=== PATIENT | female | born 1985 | race Caucasian/White ===

== ENCOUNTER 2020-10-26 14:42 | Emergency (ER) | payer BC ==
--- NOTE | 2020-10-26 14:45 | ERPHSYRPT ---
- History of Present Illness Time Seen by Provider: 10/26/20 14:45 Source: patient Exam Limitations: no limitations Physician History: This is a 35-year-old white female who has a history of diabetes and presents with sudden onset of generalized numbness. Patient states that she cannot feel anything because of generalized numbness. Patient did not hit her head. She had a similar episode approximately 8 years ago and they thought maybe it was a presurgery or sensation. However, patient did not seize. She is not on any antiseizure medication. Approximate 1 week ago, patient was started on a new oral contraceptive agent after removal of her IUD. That is the only change in her medications. Patient is being worked up by gynecology for possible polycystic ovary syndrome versus endometriosis. Patient is not under any more stress than typical. She denies chest pain. She denies shortness of breath. She has no abdominal pain at this time. She has not been vomiting blood, urinating blood or passing bloody stools. Patient denies fevers and denies chills. Timing/Duration: today Severity: mild Associated Symptoms: denies symptoms Allergies/Adverse Reactions: oxycodone Allergy (Verified 10/26/20 15:04) Vomiting Home Medications: Ergocalciferol (Vitamin D2) [Vitamin D2] 1 cap PO DAILY 10/26/20 [History] Metformin HCl 500 mg [Glucophage 500 MG] 500 mg PO TID 10/26/20 [History] l-Norgest/E.estradiol-E.estrad [Simpesse 0.15-0.03-0.01 mg Tab] 1 tab PO DAILY 10/26/20 [History] Travel Risk - International Travel Have you traveled outside of the country in past 3 weeks: No - Coronavirus Screening Are you exhibiting any of the following symptoms?: No Close contact with a COVID-19 positive Pt in past 14-21 Days: No - Review of Systems Constitutional: No Symptoms Eyes: No Symptoms Ears, Nose, & Throat: No Symptoms Respiratory: No Symptoms Cardiac: No Symptoms Abdominal/Gastrointestinal: No Symptoms Genitourinary Symptoms: No Symptoms Musculoskeletal: No Symptoms Skin: No Symptoms Neurological: Parasthesia (Generalized numbness) Psychological: No Symptoms Endocrine: No Symptoms Hematologic/Lymphatic: No Symptoms Immunological/Allergic: No Symptoms All Other Systems: Reviewed and Negative - Past Medical History Pertinent Past Medical History: Yes Neurological History: Migraines ENT History: No Pertinent History Cardiac History: No Pertinent History Respiratory History: No Pertinent History Endocrine Medical History: No Pertinent History Musculoskeletal History: No Pertinent History GI Medical History: No Pertinent History History: Other Psycho-Social History: No Pertinent History Female Reproductive Disorders: No Pertinent History - Past Surgical History Past Surgical History: Yes Neuro Surgical History: No Pertinent History Cardiac: No Pertinent History Respiratory: No Pertinent History Gastrointestinal: No Pertinent History Musculoskeletal: Orthopedic Surgery Female Surgical History: Section Other Surgical History: right ankle scope - Social History Smoking Status: Never smoker Exposure to second hand smoke: No Drug Use: none - Nursing Vital Signs Nursing Vital Signs: Initial Vital Signs Temperature 97.9 F 10/26/20 14:47 Pulse Rate 88 10/26/20 14:47 Respiratory Rate 18 10/26/20 14:47 Blood Pressure 167/102 10/26/20 14:47 O2 Sat by Pulse Oximetry 99 10/26/20 14:47 Pain Scale Pain Intensity 0 - Physical Exam General Appearance: no apparent distress, alert, anxiety Eye Exam: PERRL/EOMI, eyes nml inspection Ears, Nose, Throat Exam: normal ENT inspection, moist mucous membranes Neck Exam: normal inspection, non-tender, supple, full range of motion Respiratory Exam: normal breath sounds, lungs clear, airway intact, No chest tenderness, No respiratory distress Cardiovascular Exam: regular rate/rhythm, normal heart sounds, normal peripheral pulses Gastrointestinal/Abdomen Exam: soft, normal bowel sounds, No tenderness Pelvic Exam: not done Rectal Exam: not done Back Exam: normal inspection, normal range of motion, No CVA tenderness, No vertebral tenderness Extremity Exam: normal inspection, normal range of motion, pelvis stable Neurologic Exam: alert, oriented x 3, cooperative, instrument tester II-XII nml as tested, normal mood/affect, nml cerebellar function, nml station & gait, sensation nml Skin Exam: normal color, warm, dry Lymphatic Exam: No adenopathy SpO2 Interpretation: normal O2 Delivery: Room Air - Course Nursing assessment & vital signs reviewed: Yes Ordered Tests: Active Orders 24 hr Category Date Time Status Clean Catch Urine Specimen STAT Care 10/26/20 14:55 Active IV Insertion STAT Care 10/26/20 14:55 Active HEAD WITHOUT CONTRAST [CT] Stat Exams 10/26/20 15:47 Completed CBC W DIFF Stat Lab 10/26/20 15:17 Completed CMP Stat Lab 10/26/20 15:17 Completed CULTURE,URINE Stat Lab 10/26/20 15:18 Received HCG,QUALITATIVE URINE Stat Lab 10/26/20 15:18 Completed Lactic Acid Stat Lab 10/26/20 14:55 Completed MAGNESIUM Stat Lab 10/26/20 15:17 Completed UA W/RFX UR CULTURE Stat Lab 10/26/20 15:18 Completed Urine Triage Profile Stat Lab 10/26/20 15:18 Completed Lab/Rad Data: Laboratory Result Diagrams 10/26/20 15:17 10/26/20 15:17 Laboratory Results 10/26/20 10/26/20 10/26/20 Range/Units 15:18 15:18 15:18 WBC (4.0-10.5) K/mm3 RBC (4.1-5.4) M/mm3 Hgb (12.0-16.0) gm/dl Hct (35-47) % MCV (78-100) fl MCH (26-32) pg MCHC (32-36) g/dl RDW (11.5-14.0) % Plt Count (150-450) K/mm3 MPV (7.5-11.0) fl Gran % (36.0-66.0) % Eos # (Auto) (0-0.5) Absolute Lymphs (auto) (1.0-4.6) Absolute Monos (auto) (0.0-1.3) Lymphocytes % (24.0-44.0) % Monocytes % (0.0-12.0) % Eosinophils % (0.00-5.0) % Basophils % (0.0-0.4) % Absolute Granulocytes (1.4-6.9) Basophils # (0-0.4) Sodium (137-145) mmol/L Potassium (3.5-5.1) mmol/L Chloride (98-107) mmol/L Carbon Dioxide (22-30) mmol/L Anion Gap (5-15) MEQ/L BUN (7-17) mg/dL Creatinine (0.52-1.04) mg/dL Estimated GFR ML/MIN Glucose (74-106) mg/dL Lactic Acid (0.4-2.0) Calcium (8.4-10.2) mg/dL Magnesium (1.6-2.3) mg/dL Total Bilirubin (0.2-1.3) mg/dL AST (14-36) U/L ALT (0-35) U/L Alkaline Phosphatase (38-126) U/L Serum Total Protein (6.3-8.2) g/dL Albumin (3.5-5.0) g/dL Urine Color YELLOW (YELLOW) Urine Appearance SLIGHTLY CLOUDY (CLEAR) Urine pH 7.0 (5-6) Ur Specific [place] 1.024 (1.005-1.025) Urine Protein NEGATIVE (Negative) Urine Ketones NEGATIVE (NEGATIVE) Urine Blood MODERATE (0-5) Joe/ul Urine Nitrite POSITIVE (NEGATIVE) Urine Bilirubin NEGATIVE (NEGATIVE) Urine Urobilinogen NEGATIVE (0-1) mg/dL Ur Leukocyte Esterase SMALL (NEGATIVE) Urine WBC (Auto) 16-25 (0-5) /HPF Urine RBC (Auto) 6-10 (0-2) /HPF U Epithel Cells (Auto) RARE (FEW) /HPF Urine Bacteria (Auto) MODERATE (NEGATIVE) /HPF Calcium Oxalate Crystal 0-2 (NEGATIVE) /HPF Urine Mucus (Auto) MODERATE (NEGATIVE) /HPF Urine Yeast (Budding) Rare (NEGATIVE) /HPF Urine Culture Reflexed YES (NO) Urine Glucose NEGATIVE (NEGATIVE) mg/dL Urine HCG, Qual NEGATIVE (Negative) Urine Opiates Level NEGATIVE (NEGATIVE) Ur Methadone NEGATIVE (NEGATIVE) Urine Barbiturates NEGATIVE (NEGATIVE) Ur Phencyclidine (PCP) NEGATIVE (NEGATIVE) Urine Amphetamine NEGATIVE (NEGATIVE) U Benzodiazepine Level NEGATIVE (NEGATIVE) Urine Cocaine NEGATIVE (NEGATIVE) Urine Marijuana (THC) NEGATIVE (NEGATIVE) 10/26/20 10/26/20 10/26/20 Range/Units 15:17 15:17 14:55 WBC 8.4 (4.0-10.5) K/mm3 RBC 4.64 (4.1-5.4) M/mm3 Hgb 13.3 (12.0-16.0) gm/dl Hct 42.0 (35-47) % MCV 90.5 (78-100) fl MCH 28.7 (26-32) pg MCHC 31.7 L (32-36) g/dl RDW 14.0 (11.5-14.0) % Plt Count 274 (150-450) K/mm3 MPV 11.2 H (7.5-11.0) fl Gran % 64.7 (36.0-66.0) % Eos # (Auto) 0.17 (0-0.5) Absolute Lymphs (auto) 2.16 (1.0-4.6) Absolute Monos (auto) 0.59 (0.0-1.3) Lymphocytes % 25.7 (24.0-44.0) % Monocytes % 7.0 (0.0-12.0) % Eosinophils % 2.0 (0.00-5.0) % Basophils % 0.6 (0.0-0.4) % Absolute Granulocytes 5.43 (1.4-6.9) Basophils # 0.05 (0-0.4) Sodium 140 (137-145) mmol/L Potassium 3.4 L (3.5-5.1) mmol/L Chloride 104 (98-107) mmol/L Carbon Dioxide 25 (22-30) mmol/L Anion Gap 14.0 (5-15) MEQ/L BUN 11 (7-17) mg/dL Creatinine 0.73 (0.52-1.04) mg/dL Estimated GFR > 60.0 ML/MIN Glucose 101 (74-106) mg/dL Lactic Acid 1.1 (0.4-2.0) Calcium 9.6 (8.4-10.2) mg/dL Magnesium 2.1 (1.6-2.3) mg/dL Total Bilirubin 0.50 (0.2-1.3) mg/dL AST 25 (14-36) U/L ALT 19 (0-35) U/L Alkaline Phosphatase 46 (38-126) U/L Serum Total Protein 7.8 (6.3-8.2) g/dL Albumin 4.8 (3.5-5.0) g/dL Urine Color (YELLOW) Urine Appearance (CLEAR) Urine pH (5-6) Ur Specific [place] (1.005-1.025) Urine Protein (Negative) Urine Ketones (NEGATIVE) Urine Blood (0-5) Joe/ul Urine Nitrite (NEGATIVE) Urine Bilirubin (NEGATIVE) Urine Urobilinogen (0-1) mg/dL Ur Leukocyte Esterase (NEGATIVE) Urine WBC (Auto) (0-5) /HPF Urine RBC (Auto) (0-2) /HPF U Epithel Cells (Auto) (FEW) /HPF Urine Bacteria (Auto) (NEGATIVE) /HPF Calcium Oxalate Crystal (NEGATIVE) /HPF Urine Mucus (Auto) (NEGATIVE) /HPF Urine Yeast (Budding) (NEGATIVE) /HPF Urine Culture Reflexed (NO) Urine Glucose (NEGATIVE) mg/dL Urine HCG, Qual (Negative) Urine Opiates Level (NEGATIVE) Ur Methadone (NEGATIVE) Urine Barbiturates (NEGATIVE) Ur Phencyclidine (PCP) (NEGATIVE) Urine Amphetamine (NEGATIVE) U Benzodiazepine Level (NEGATIVE) Urine Cocaine (NEGATIVE) Urine Marijuana (THC) (NEGATIVE) - Progress Progress: improved, re-examined Progress Note: 10/26/20 16:29 CAT scan of the head without contrast shows no acute intracranial abnormality. Counseled pt/family regarding: lab results, diagnosis, need for follow-up, rad results - Departure Departure Disposition: Home Clinical Impression: Numbness, UTI (urinary tract infection) Condition: Stable Critical Care Time: No Referrals: HANNAH SMITH [Primary Care Provider] - Additional Instructions: Drink plenty of fluids. Take your medication as prescribed. Follow-up with your primary care physician for further management. Prescriptions: Ciprofloxacin [Cipro 500 MG] 500 mg PO BID #14 tablet
[2020-10-26 15:22] LABS: Absolute Neutrophil Ct (ANC) 5.43 (1.4-6.9); BASOPHIL % 0.6 % (0.0-0.4); Basophil (Absolute #) 0.05 (0-0.4); Eosinophil (Absolute #) 0.17 (0-0.5); Hemoglobin 13.3 gm/dl (12.0-16.0); Lymphocyte (Absolute #) 2.16 (1.0-4.6); Lymphocytes % 25.7 % (24.0-44.0); Mean Cell Volume 90.5 fl (78-100); Mean Corpuscular Hemoglobin 28.7 pg (26-32); Mean Corpuscular Hgb Concent. 31.7 g/dl (32-36); Mean Platelet Volume 11.2 fl (7.5-11.0); Monocyte (Absolute #) 0.59 (0.0-1.3); Neutrophil % 64.7 % (36.0-66.0); Platelet Count 274 K/mm3 (150-450); Red Blood Count 4.64 M/mm3 (4.1-5.4); White Blood Count 8.4 K/mm3 (4.0-10.5)
[2020-10-26 15:30] LABS: ALBUMIN 4.8 g/dL (3.5-5.0); ALKALINE PHOSPHATASE 46 U/L (38-126); BLOOD UREA NITROGEN 11 mg/dL (7-17); CHLORIDE 104 mmol/L (98-107); Calcium 9.6 mg/dL (8.4-10.2); Carbon Dioxide 25 mmol/L (22-30); Creatinine 1 0.73 mg/dL (0.52-1.04); EST GLOMERULAR FILTRATION RATE > 60.0 ML/MIN; Glucose 101 mg/dL (74-106); MAGNESIUM 2.1 mg/dL (1.6-2.3); Potassium 3.4 mmol/L (3.5-5.1); SGOT/AST 25 U/L (14-36); SGPT/ALT 19 U/L (0-35); SODIUM 140 mmol/L (137-145); Total Protein 7.8 g/dL (6.3-8.2)
[2020-10-26 15:53] LABS: Amphetamine,Urine NEGATIVE (NEGATIVE); Barbiturate,Urine NEGATIVE (NEGATIVE); Benzodiazepine,Urine NEGATIVE (NEGATIVE); Cocaine,Urine NEGATIVE (NEGATIVE); Methadone,Urine NEGATIVE (NEGATIVE); Opiate,Urine NEGATIVE (NEGATIVE); PCP,Urine NEGATIVE (NEGATIVE); THC,Urine NEGATIVE (NEGATIVE)
[2020-10-26 16:05] LABS: Appearance SLIGHTLY CLOUDY (CLEAR); Bacteria MODERATE /HPF (NEGATIVE); Bilirubin NEGATIVE (NEGATIVE); Blood MODERATE Ery/ul (0-5); Epithelial Cells RARE /HPF (FEW); Glucose NEGATIVE (NEGATIVE); Ketones NEGATIVE (NEGATIVE); Leukocyte Esterase SMALL (NEGATIVE); Mucus MODERATE /HPF (NEGATIVE); Nitrite POSITIVE (NEGATIVE); Protein,Urine Dip NEGATIVE (Negative); Specific Gravity 1.024 (1.005-1.025); Urobilinogen NEGATIVE mg/dL (0-1)
[2020-10-26 16:08] VITALS: BP 151/86; PULSE 82; O2SAT 97
[2020-10-26 16:17] LABS: Budding Yeast Rare /HPF (NEGATIVE)
[2020-10-26 16:18] LABS: Calcium Oxalate Crystals 0-2 /HPF (NEGATIVE)
--- NOTE | 2020-10-26 16:27 | XRAY ---
Indication: Diffuse numbness. Multiple contiguous axial images obtained through the head without contrast. Comparison: None Normal appearing brain parenchyma, ventricles, and bony calvarium. Visualized paranasal sinuses and mastoid air cells are clear. Impression: Normal CT head without contrast exam.
[2020-10-26] MEDS ORDERED: ROCEPHIN 1 Gm-D5w 50 ml Bag** 1 G/50 ML IVPB IV STA (16:30)
[2020-10-26] MEDS ORDERED: ROCEPHIN 1 Gm-D5w 50 ml Bag** 1 G/50 ML IVPB IV ONE (16:33)
== END 2020-10-26 17:19 | disposition home or self-care (01) ==
LOC: ED 14:42
DX: R20.0 Anesthesia of skin (principal); N39.0 Urinary tract infection, site not specified
CPT/HCPCS: 36000; 36415; 70450; 80053; 80307; 81001; 83605; 83735; 84703; 85025; 87077; 87086; 87186; 96365; 96374; 99284; J0696

== ENCOUNTER 2021-11-03 09:19 | Emergency (ER) | payer BC ==
[2021-11-03] MEDS ORDERED: Zofran 4 MG/2 ML VIAL ONE (09:35)
[2021-11-03] MEDS ORDERED: Sodium Chloride 0.9% 1000 ML 1,000 ML ONE (09:35)
[2021-11-03] MEDS ORDERED: MORPHINE SULFATE 4 MG INJ ONE ×2 (09:35→10:25)
[2021-11-03] MEDS ORDERED: TORAdol 30 mg Injection ONE (09:48)
[2021-11-03] MEDS ORDERED: TORAdol 30 mg Injection IV ONE (09:49)
[2021-11-03] MEDS ORDERED: MORPHINE SULFATE 4 MG INJ IV ONE ×2 (09:53→10:23)
[2021-11-03] MEDS ORDERED: Sodium Chloride 0.9% 1000 ML 1,000 ML IV STA (10:17)
[2021-11-03] MEDS ORDERED: Zofran 4 MG/2 ML VIAL IV ONE (10:18)
[2021-11-03] MEDS ORDERED: Flomax 0.4 MG ONE (10:25)
[2021-11-03] MEDS ORDERED: Flomax 0.4 MG PO STA (10:27)
[2021-11-03 10:42] LABS: Absolute Neutrophil Ct (ANC) 5.99 x10^3/uL (1.4-6.9); Basophil (Absolute #) 0.03 x10^3/uL (0-0.4); Eosinophil % 0.9 % (0.00-5.0); Eosinophil (Absolute #) 0.07 x10^3/uL (0-0.5); Hematocrit 41.2 % (35-47); Hemoglobin 13.9 g/dL (12.0-16.0); Lymphocyte (Absolute #) 1.25 x10^3/uL (1.0-4.6); Lymphocytes % 16.2 % (24.0-44.0); Mean Cell Volume 89.8 fL (78-100); Mean Corpuscular Hemoglobin 30.3 pg (26-32); Mean Corpuscular Hgb Concent. 33.7 g/dL (32-36); Mean Platelet Volume 11.4 fL (7.5-11.0); Monocyte (Absolute #) 0.36 x10^3/uL (0.0-1.3); Monocytes % 4.7 % (0.0-12.0); Neutrophil % 77.7 % (36.0-66.0); Platelet Count 225 x10^3/uL (150-450); Red Blood Count 4.59 x10^6/uL (4.1-5.4); Red Cell Distribution Width 13.1 % (11.5-14.0); White Blood Count 7.7 x10^3/uL (4.0-10.5)
[2021-11-03 10:52] LABS: ALBUMIN 5.2 g/dL (3.5-5.0); ALKALINE PHOSPHATASE 69 U/L (38-126); ANION GAP 19.6 MEQ/L (5-15); BLOOD UREA NITROGEN 16 mg/dL (7-17); CHLORIDE 104 mmol/L (98-107); Calcium 10.2 mg/dL (8.4-10.2); Carbon Dioxide 18 mmol/L (22-30); Creatinine 1 0.73 mg/dL (0.52-1.04); EST GLOMERULAR FILTRATION RATE > 60.0 ML/MIN; Glucose 129 mg/dL (74-106); Potassium 4.1 mmol/L (3.5-5.1); SGOT/AST 18 U/L (14-36); SGPT/ALT 15 U/L (0-35); SODIUM 138 mmol/L (137-145); Total Protein 7.6 g/dL (6.3-8.2)
[2021-11-03 12:33] LABS: Appearance CLEAR (CLEAR); Bacteria RARE /HPF (NEGATIVE); Bilirubin NEGATIVE (NEGATIVE); Dipstick done @ ? MAIN LAB; Glucose NEGATIVE (NEGATIVE); Ketones SMALL-15 (NEGATIVE); Mucus SLIGHT /HPF (NEGATIVE); Nitrite NEGATIVE (NEGATIVE); Ph 5.5 (5-6); Protein,Urine Dip NEGATIVE (Negative); RBC 26-50 /HPF (0-2); RBC MODERATE Ery/ul (0-5); Specific Gravity 1.015 (1.005-1.025); Urobilinogen 0.2 mg/dL (0-1)
[2021-11-03 12:34] LABS: Urine Cultured Indicated? NO
[2021-11-03 12:45] VITALS: BP 94/46; PULSE 87; O2SAT 99
--- NOTE | 2021-11-03 12:53 | ERPHSYRPT ---
- History of Present Illness Time Seen by Provider: 11/03/21 09:52 Historian: patient Exam Limitations: no limitations Patient Subjective Stated Complaint: Pt began having RLQ pain that woke her this morning and she thought she had to go to the bathroom, the pain as continued to get worse Triage Nursing Assessment: Pt brought to the ER by her , vitals wnl, rates pain as 10/10, pain to RLQ, hx of PCOS, pain with palpatation, skin n/cool/diaphoretic, unable to get comfortable, pulses normal, N&V, loose stools Physician History: 36-year-old female presented in the ER with sudden onset right lower quadrant pain moderate to severe sharp shooting, aggravated with movement/palpation and no significant relieving factors. Associated nausea and vomiting. Denies any urinary complaints. No fever or chills reported. Timing/Duration: today, hour(s) (3), constant, sudden, worse Activities at Onset: rest Quality: sharpness, stabbing Abdominal Pain Onset Location: RLQ Pain Radiation: groin Severity of Pain-Max: severe Severity of Pain-Current: severe Modifying Factors: Worsens With: movement, palpation Associated Symptoms: nausea, vomiting Previous symptoms: no prior history Allergies/Adverse Reactions: oxycodone Allergy (Verified 11/03/21 09:46) Vomiting Home Medications: Ergocalciferol (Vitamin D2) [Vitamin D2] 1 cap PO DAILY 10/26/20 [History] Dextroamphetamine/Amphetamine [Adderall Xr 20 mg Capsule] 20 mg PO DAILY 11/03/21 [History] Fluoxetine HCl 10 mg [Prozac 10 mg] 10 mg PO DAILY 11/03/21 [History] PHENobarbitaL [Phenobarbital] 15 mg PO QAM 11/03/21 [History] PHENobarbitaL [Phenobarbital] 60 mg PO DAILY 11/03/21 [History] Hx Tetanus, Diphtheria Vaccination/Date Given: Yes Hx Influenza Vaccination/Date Given: No Hx Pneumococcal Vaccination/Date Given: No Travel Risk - International Travel Have you traveled outside of the country in past 3 weeks: No - Coronavirus Screening Are you exhibiting any of the following symptoms?: No Close contact with a COVID-19 positive Pt in past 14-21 Days: No - Vaccine Status Have you recieved a Covid-19 vaccination: No - Review of Systems Constitutional: No Symptoms Eyes: Photophobia Ears, Nose, & Throat: No Symptoms Respiratory: No Symptoms Cardiac: No Symptoms Abdominal/Gastrointestinal: Abdominal Pain, Nausea, Vomiting Genitourinary Symptoms: No Symptoms Musculoskeletal: No Symptoms Skin: No Symptoms Neurological: No Symptoms Psychological: No Symptoms Endocrine: No Symptoms Hematologic/Lymphatic: No Symptoms Immunological/Allergic: No Symptoms - Past Medical History Pertinent Past Medical History: Yes Neurological History: Migraines ENT History: No Pertinent History Cardiac History: No Pertinent History Respiratory History: No Pertinent History Endocrine Medical History: No Pertinent History Musculoskeletal History: No Pertinent History GI Medical History: No Pertinent History History: Other Psycho-Social History: No Pertinent History Female Reproductive Disorders: No Pertinent History Other Medical History: PCOS, possible endometriosis - Past Surgical History Past Surgical History: Yes Neuro Surgical History: No Pertinent History Cardiac: No Pertinent History Respiratory: No Pertinent History Gastrointestinal: No Pertinent History Musculoskeletal: Orthopedic Surgery Female Surgical History: Section Other Surgical History: right ankle scope - Social History Smoking Status: Never smoker Exposure to second hand smoke: No Drug Use: none Patient Lives Alone: No - Female History Hx Last Menstrual Period: 3 weeks ago Hx Now: No (waiting on test results) - Nursing Vital Signs Nursing Vital Signs: Initial Vital Signs Temperature 97.0 F 11/03/21 09:25 Pulse Rate 62 11/03/21 09:25 Blood Pressure 116/55 11/03/21 09:25 O2 Sat by Pulse Oximetry 100 11/03/21 09:25 Pain Scale Pain Intensity 4 - Physical Exam General Appearance: no apparent distress, alert Eye Exam: PERRL/EOMI Ears, Nose, Throat Exam: normal ENT inspection Neck Exam: normal inspection, supple, full range of motion Respiratory Exam: normal breath sounds, lungs clear Cardiovascular Exam: regular rate/rhythm, normal heart sounds Gastrointestinal/Abdomen Exam: soft, normal bowel sounds, tenderness (Right lower quadrant/flank), No guarding, No rebound Back Exam: normal inspection, normal range of motion, CVA tenderness (Right side) Neurologic Exam: alert, oriented x 3, cooperative Skin Exam: normal color SpO2 Interpretation: normal SpO2: 99 O2 Delivery: Room Air Ordered Tests: Active Orders 24 hr Category Date Time Status IV Insertion STAT Care 11/03/21 09:32 Completed ABDOMEN AND PELVIS W/0 CONTRAS [CT] Stat Exams 11/03/21 09:33 Completed CBC W DIFF Stat Lab 11/03/21 10:40 Completed CMP Stat Lab 11/03/21 10:40 Completed HCG QUALITATIVE,SERUM Stat Lab 11/03/21 10:40 Completed LIPASE Stat Lab 11/03/21 10:40 Completed UA W/RFX CULTURE Stat Lab 11/03/21 Completed Medication Summary Discontinued Medications Generic Name Dose Route Start Last Admin Trade Name Leland PRN Reason Stop Dose Admin Sodium Chloride Confirm 11/03/21 09:35 Sodium Chloride 0.9% 1000 Ml Administered 11/03/21 09:36 Dose 1,000 mls @ ud .ROUTE .STK-MED ONE Sodium Chloride 1,000 mls @ 999 mls/hr 11/03/21 10:17 11/03/21 12:47 Sodium Chloride 0.9% 1000 Ml IV 11/03/21 11:17 Infused .Q1H1M STA Infusion Ketorolac Tromethamine 30 mg 11/03/21 09:49 11/03/21 10:19 Ketorolac Tromethamine 30 Mg/Ml Inj IV 11/03/21 09:50 30 mg STAT ONE Administration Ketorolac Tromethamine Confirm 11/03/21 09:48 Ketorolac Tromethamine 30 Mg/Ml Inj Administered 11/03/21 09:49 Dose 30 mg .ROUTE .STK-MED ONE Morphine Sulfate Confirm 11/03/21 09:35 Morphine Sulfate 4 Mg/Ml Injection Administered 11/03/21 09:36 Dose 4 mg .ROUTE .STK-MED ONE Morphine Sulfate 4 mg 11/03/21 09:53 11/03/21 10:19 Morphine Sulfate 4 Mg/Ml Injection IV 11/03/21 09:54 4 mg STAT ONE Administration Morphine Sulfate 4 mg 11/03/21 10:23 11/03/21 10:28 Morphine Sulfate 4 Mg/Ml Injection IV 11/03/21 10:24 4 mg STAT ONE Administration Morphine Sulfate Confirm 11/03/21 10:25 Morphine Sulfate 4 Mg/Ml Injection Administered 11/03/21 10:26 Dose 4 mg .ROUTE .STK-MED ONE Ondansetron HCl Confirm 11/03/21 09:35 Ondansetron Hcl 4 Mg/2 Ml Vial Administered 11/03/21 09:36 Dose 4 mg .ROUTE .STK-MED ONE Ondansetron HCl 4 mg 11/03/21 10:18 11/03/21 10:20 Ondansetron Hcl 4 Mg/2 Ml Vial IV 11/03/21 10:19 4 mg STAT ONE Administration Tamsulosin HCl Confirm 11/03/21 10:25 Tamsulosin Hcl 0.4 Mg Cap Administered 11/03/21 10:26 Dose 0.4 mg .ROUTE .STK-MED ONE Tamsulosin HCl 0.4 mg 11/03/21 10:27 11/03/21 10:28 Tamsulosin Hcl 0.4 Mg Cap PO 11/03/21 10:28 0.4 mg ONCE STA Administration Lab/Rad Data: Laboratory Result Diagrams 11/03/21 10:40 11/03/21 10:40 Laboratory Results 11/03/21 11/03/21 11/03/21 Range/Units Unknown 10:40 10:40 WBC (4.0-10.5) x10^3/uL RBC (4.1-5.4) x10^6/uL Hgb (12.0-16.0) g/dL Hct (35-47) % MCV (78-100) fL MCH (26-32) pg MCHC (32-36) g/dL RDW (11.5-14.0) % Plt Count (150-450) x10^3/uL MPV (7.5-11.0) fL Gran % (36.0-66.0) % Immature Gran % (Auto) (0.00-0.4) % Nucleat RBC Rel Count (0.00-0.1) % Eos # (Auto) (0-0.5) x10^3/uL Immature Gran # (Auto) (0.00-0.03) x10^3u/L Absolute Lymphs (auto) (1.0-4.6) x10^3/uL Absolute Monos (auto) (0.0-1.3) x10^3/uL Absolute Nucleated RBC (0.00-0.01) x10^3u/L Lymphocytes % (24.0-44.0) % Monocytes % (0.0-12.0) % Eosinophils % (0.00-5.0) % Basophils % (0.0-0.4) % Absolute Granulocytes (1.4-6.9) x10^3/uL Basophils # (0-0.4) x10^3/uL Sodium (137-145) mmol/L Potassium (3.5-5.1) mmol/L Chloride (98-107) mmol/L Carbon Dioxide (22-30) mmol/L Anion Gap (5-15) MEQ/L BUN (7-17) mg/dL Creatinine (0.52-1.04) mg/dL Estimated GFR ML/MIN Glucose (74-106) mg/dL Calcium (8.4-10.2) mg/dL Total Bilirubin (0.2-1.3) mg/dL AST (14-36) U/L ALT (0-35) U/L Alkaline Phosphatase (38-126) U/L Serum Total Protein (6.3-8.2) g/dL Albumin (3.5-5.0) g/dL Lipase 129 (23-300) U/L Serum , Qual NEGATIVE (Negative) Urinalys Dipstick Clnc MAIN LAB Urine Color YELLOW (YELLOW) Urine Appearance CLEAR (CLEAR) Urine pH 5.5 (5-6) Ur Specific [place] 1.015 (1.005-1.025) POC Urine Protein Conf NEGATIVE (Negative) Urine Ketones SMALL-15 (NEGATIVE) Urine Nitrite NEGATIVE (NEGATIVE) Urine Bilirubin NEGATIVE (NEGATIVE) Urine Urobilinogen 0.2 (0-1) mg/dL Urine Leukocytes NEGATIVE (NEGATIVE) Urine WBC (Auto) 3-5 (0-5) /HPF Urine RBC (Auto) 26-50 (0-2) /HPF U Epithel Cells (Auto) NONE (FEW) /HPF Urine Bacteria (Auto) RARE (NEGATIVE) /HPF Urine RBC MODERATE (0-5) Joe/ul Urine Mucus (Auto) SLIGHT (NEGATIVE) /HPF Ur Culture Indicated? NO Urine Glucose NEGATIVE (NEGATIVE) mg/dL 11/03/21 11/03/21 Range/Units 10:40 10:40 WBC 7.7 (4.0-10.5) x10^3/uL RBC 4.59 (4.1-5.4) x10^6/uL Hgb 13.9 (12.0-16.0) g/dL Hct 41.2 (35-47) % MCV 89.8 (78-100) fL MCH 30.3 (26-32) pg MCHC 33.7 (32-36) g/dL RDW 13.1 (11.5-14.0) % Plt Count 225 (150-450) x10^3/uL MPV 11.4 H (7.5-11.0) fL Gran % 77.7 H (36.0-66.0) % Immature Gran % (Auto) 0.1 (0.00-0.4) % Nucleat RBC Rel Count 0.0 (0.00-0.1) % Eos # (Auto) 0.07 (0-0.5) x10^3/uL Immature Gran # (Auto) 0.01 (0.00-0.03) x10^3u/L Absolute Lymphs (auto) 1.25 (1.0-4.6) x10^3/uL Absolute Monos (auto) 0.36 (0.0-1.3) x10^3/uL Absolute Nucleated RBC 0.00 (0.00-0.01) x10^3u/L Lymphocytes % 16.2 L (24.0-44.0) % Monocytes % 4.7 (0.0-12.0) % Eosinophils % 0.9 (0.00-5.0) % Basophils % 0.4 (0.0-0.4) % Absolute Granulocytes 5.99 (1.4-6.9) x10^3/uL Basophils # 0.03 (0-0.4) x10^3/uL Sodium 138 (137-145) mmol/L Potassium 4.1 (3.5-5.1) mmol/L Chloride 104 (98-107) mmol/L Carbon Dioxide 18 L (22-30) mmol/L Anion Gap 19.6 H (5-15) MEQ/L BUN 16 (7-17) mg/dL Creatinine 0.73 (0.52-1.04) mg/dL Estimated GFR > 60.0 ML/MIN Glucose 129 H (74-106) mg/dL Calcium 10.2 (8.4-10.2) mg/dL Total Bilirubin 0.40 (0.2-1.3) mg/dL AST 18 (14-36) U/L ALT 15 (0-35) U/L Alkaline Phosphatase 69 (38-126) U/L Serum Total Protein 7.6 (6.3-8.2) g/dL Albumin 5.2 H (3.5-5.0) g/dL Lipase (23-300) U/L Serum , Qual (Negative) Urinalys Dipstick Clnc Urine Color (YELLOW) Urine Appearance (CLEAR) Urine pH (5-6) Ur Specific [place] (1.005-1.025) POC Urine Protein Conf (Negative) Urine Ketones (NEGATIVE) Urine Nitrite (NEGATIVE) Urine Bilirubin (NEGATIVE) Urine Urobilinogen (0-1) mg/dL Urine Leukocytes (NEGATIVE) Urine WBC (Auto) (0-5) /HPF Urine RBC (Auto) (0-2) /HPF U Epithel Cells (Auto) (FEW) /HPF Urine Bacteria (Auto) (NEGATIVE) /HPF Urine RBC (0-5) Joe/ul Urine Mucus (Auto) (NEGATIVE) /HPF Ur Culture Indicated? Urine Glucose (NEGATIVE) mg/dL - Progress Progress: improved Progress Note: 11/03/21 12:50 She is given fluids and symptomatic treatment for pain, on reevaluation feeling better. Has normal white count, unremarkable chemistries except for's elevated gap. CT showed 4 mm stone at right UVJ with hydroureteronephrosis without any definite obstruction. No UTI. Patient later on passed stone. Recommended Tylenol ibuprofen and outpatient urology follow-up. Discussed signs symptoms of worsening needing return to ER which he seems understanding. Counseled pt/family regarding: lab results, diagnosis, need for follow-up, rad results - Departure Departure Disposition: Home Clinical Impression: Ureterolithiasis Condition: Stable Critical Care Time: No Referrals: HANNAH SMITH MD [Primary Care Provider] - Follow Up with PCP/3 days CRISTY BROWNING [COURTESY STAFF] - Follow up/PCP as directed (In 3 days for reevaluation) Instructions: Kidney Stones (DC) Additional Instructions: Take Tylenol/ibuprofen as needed. Follow-up with primary care and urology for reevaluation. Return to ER for worsening pain/blood in urine/fever chills etc. Prescriptions: Ibuprofen 600 mg PO Q6HPRN PRN 10 Days #20 tablet PRN Reason: Pain
--- NOTE | 2021-11-03 20:08 | XRAY ---
Indication: Right lower quadrant pain. Multiple contiguous axial images obtained through the abdomen and pelvis without contrast. Comparison: May 23, 2020. Lung bases clear. Heart not enlarged. Noncontrasted stomach and bowel loops appear nonobstructed with normal appendix. New 3-4 mm right UVJ calculus. Proximal right ureter is prominent along with mild hydronephrosis favors partial obstructive uropathy. No free fluid/air. Remaining liver, gallbladder, pancreas, spleen, adrenal glands, kidneys, ureters, bladder, uterus, and aorta are unremarkable for noncontrast exam. Osseous structures intact. Impression: New 3-4 mm right UVJ calculus producing obstructive uropathy as detailed. Comment: Preliminary interpretation made by [facility]. No critical discrepancy.
== END 2021-11-03 13:09 | disposition home or self-care (01) ==
LOC: ED 09:19
DX: N13.2 Hydronephrosis with renal and ureteral calculous obstruction (principal); R10.31 Right lower quadrant pain; R11.2 Nausea with vomiting, unspecified; E28.2 Polycystic ovarian syndrome; Z79.899 Other long term (current) drug therapy
CPT/HCPCS: 36000; 36415; 74176; 80053; 81015; 81025; 83690; 85025; 96360; 96374; 96375; 96376; 99284; J1885; J2270; J2405; A9270-GY